=== PATIENT | male | born 1980 | race Two or more races ===

== ENCOUNTER → 2019-02-07 | Day surgery (SDC) | payer OTHER ==
[~2019-02-07] VITALS: Ht 182.9 cm; Wt 93.0 kg
[~2019-02-07] MED LIST: CIPROFLOXACIN 400MG/200ML 200 ML IV ONE
[2019-02-07 06:15] VITALS: BP 106/72
[2019-02-07 07:03] LABS: Basophils # (auto) 0 uL; Basophils % (auto) 0.6 % (0.0-2.0); Eosinophils # (auto) 0.2 uL; Eosinophils % (auto) 2.6 % (0.0-7.0); Hematocrit 49.1 % (41.0-53.0); Hemoglobin 17.2 g/dL (13.5-17.5); Lymphocytes # (auto) 2.2 uL; Lymphocytes % (auto) 29.8 % (10.0-50.0); Mean Corpuscular Hemoglobin 31.7 pg (28.0-32.0); Mean Corpuscular Hgb Conc. 35.1 g/dL (32.0-36.0); Mean Corpuscular Volume 90.3 fL (80.0-100.0); Monocytes # (auto) 0.7 uL; Neutrophils # (auto) 4.2 uL; Nucleated Red Blood Cells % 0.2 %; Platelet Count (auto) 219 10^3/uL (140-450); Red Blood Cells 5.44 10^6/uL (4.5-5.90); White Blood Cell 7.3 10^3/uL (4.4-10.8)
[2019-02-07 07:15] LABS: INR < 0.93 (0.9-1.15); Partial Thromboplastin Time 26.5 sec (23.64-32.05)
[2019-02-07 07:21] LABS: Potassium 4.1 mmol/L (3.5-5.1)
[2019-02-07 07:46] LABS: Bilirubin, Total 0.3 mg/dL (0.2-1.0); Total Protein 7.6 g/dL (6.4-8.2)
[2019-02-07 07:58] LABS: BUN/Creatinine Ratio 20.2; Calcium 8.6 mg/dL (8.5-10.1)
[2019-02-07 07:59] LABS: Albumin 3.8 g/dL (3.4-5.0)
== END | disposition home or self-care (01) ==
LOC: SUR 05:50
PROVIDERS: ATTEND Urology
DX: N40.1 Benign prostatic hyperplasia with lower urinary tract symptoms (principal); R35.1 Nocturia
CPT/HCPCS: 36415; 71045; 80053; 85025; 85610; 85730; J0744

== ENCOUNTER → 2019-04-28 | Day surgery (SDC) | payer OTHER ==
[~2019-04-28] VITALS: Ht 182.9 cm; Wt 104.3 kg
[~2019-04-28] MED LIST changes: -CIPROFLOXACIN 400MG/200ML 200 ML IV ONE; +DexAMETHasone SOD PHOS 10MG/1ML VIAL INJ ONE; +HYDROmorphone HCL 2 MG/ML VL IV PRN; +KETOROLAC TROMETH 30 MG/ML 1ML VIAL IV ONE; +LABETALOL HCL 5 MG/ML 4ML SYRINGE IV PRN; +MEPERIDINE HCL (25 MG/ML) 1ML VIAL ONE; +MIDAZOLAM HCL 1MG/1ML-2 ML VIAL IV PRN; +MIDAZOLAM HCL 1MG/1ML-2 ML VIAL ONE; +MORPHINE SULFATE 4 MG/ML SYR/VIAL IV PRN; +ONDANSETRON HCL 4 MG/2 ML VIAL IV PRN; +PROPOFOL 10 MG/ML 20 ML IV ONE; +ceFAZolin 1GM/50ML 50 ML IV ONE; +ePHEDrine SULFATE 50 MG/ML AMP IV PRN; +fentaNYL CITRATE 100 MCG/2 ML VL ONE
[2019-04-28 07:16] LABS: Hematocrit 43.3 % (41.0-53.0); Hemoglobin 15.3 g/dL (13.5-17.5); Mean Corpuscular Hemoglobin 31.6 pg (28.0-32.0); Mean Corpuscular Hgb Conc. 35.4 g/dL (32.0-36.0); Mean Corpuscular Volume 89.3 fL (80.0-100.0); Platelet Count (auto) 181 10^3/uL (140-450); Red Blood Cells 4.85 10^6/uL (4.5-5.90); Red Cell Distribution Width 13.8 % (11.8-14.3); White Blood Cell 6.7 10^3/uL (4.4-10.8)
[2019-04-28 07:20] LABS: Band Neutrophils % (manual) 0; Basophils % (manual) 0 (0.0-2.0); Blast Cells 0; Metamyelocytes % 0; Myelocytes % 0; Promyelocytes % 0; Reactive Lymphocytes 0
[2019-04-28 07:30] LABS: INR 0.98 (0.9-1.15); Partial Thromboplastin Time 25.9 sec (23.64-32.05)
[2019-04-28 07:40] LABS: BUN/Creatinine Ratio 13.8; Calcium 9.1 mg/dL (8.5-10.1)
[2019-04-28 07:43] LABS: Eosinophils % (manual) 2 (0-7); Lymphocytes % (manual) 36 (10.0-50.0); Monocytes % (manual) 13 (0-12)
[2019-04-28 11:35] VITALS: BP 143/84
== END | disposition home or self-care (01) ==
LOC: SUR 06:08
PROVIDERS: ATTEND Urology
DX: N35.819 Other urethral stricture, male, unspecified site (principal); N40.1 Benign prostatic hyperplasia with lower urinary tract symptoms; R35.1 Nocturia; F41.9 Anxiety disorder, unspecified; F32.9 Major depressive disorder, single episode, unspecified; E78.5 Hyperlipidemia, unspecified; E55.9 Vitamin D deficiency, unspecified; E66.9 Obesity, unspecified; Z68.31 Body mass index [BMI] 31.0-31.9, adult; Z79.899 Other long term (current) drug therapy
CPT/HCPCS: 36415; 52276; 80048; 85007; 85027; 85610; 85730; 93005; J0690; J1100; J1885; J2175; J2250; J2405; J2704; J3010